=== PATIENT | female | born 1950 | race Two or more races ===

== ENCOUNTER → 2020-02-14 | Outpatient (CLI) | payer OTHER | END | disposition home or self-care (01) | LOC: PPH VACUNA 12:56 | PROVIDERS: ATTEND Emergency Medicine Pediatric Emergency Medicine | DX: Z23 Encounter for immunization (principal) ==

== ENCOUNTER 2020-03-06 10:41 | Outpatient (CLI) | payer OTHER | END 2020-03-06 10:42 | disposition home or self-care (01) | LOC: PPH VACUNA 10:41 | PROVIDERS: ATTEND Emergency Medicine Pediatric Emergency Medicine | DX: Z23 Encounter for immunization (principal) ==